=== PATIENT | male | born 1940 | race Caucasian/White ===

== ENCOUNTER 2021-09-18 00:37 | Emergency (ER) | payer MEDICARE ==
[~2021-09-18] VITALS: Ht 188 cm; Wt 96.7 kg
[2021-09-18] MEDS ORDERED: TRANEXAMIC ACID 1,000 MG/10 ML VIAL IVP ONE (01:15)
[2021-09-18] MEDS ORDERED: METO25 PO (01:31)
[2021-09-18] MEDS ORDERED: HYDR-4723 PO (01:31)
[2021-09-18] MEDS ORDERED: DONE-51 PO (01:31)
[2021-09-18] MEDS ORDERED: MELA5TAB40 PO (01:31)
[2021-09-18] MEDS ORDERED: TICA90TA PO (01:31)
[2021-09-18] MEDS ORDERED: CLON-598 PO (01:31)
[2021-09-18] MEDS ORDERED: ASPI-1450 PO (01:31)
[2021-09-18] MEDS ORDERED: CYAN500T56 PO (01:31)
[2021-09-18] MEDS ORDERED: RANO500T3 PO (01:31)
[2021-09-18] MEDS ORDERED: AMIO200T68 PO (01:31)
[2021-09-18] MEDS ORDERED: GABA-1181 PO (01:31)
[2021-09-18] MEDS ORDERED: TRAZ-252 PO (01:31)
[2021-09-18] MEDS ORDERED: LACT1.5C PO (01:31)
[2021-09-18] MEDS ORDERED: LOPE-202 PO (01:31)
[2021-09-18] MEDS ORDERED: TAMS-13 PO (01:31)
[2021-09-18] MEDS ORDERED: ATOR40TA28 PO (01:31)
[2021-09-18] MEDS ORDERED: FURO20 PO (01:31)
[2021-09-18] MEDS ORDERED: NITR0.4T52 SL (01:31)
[2021-09-18] MEDS ORDERED: SILO8CAP6 PO (01:31)
[2021-09-18] MEDS ORDERED: DOCU250C16 PO (01:31)
[2021-09-18] MEDS ORDERED: VANC250C6 PO (01:31)
[2021-09-18 01:50] LABS: BASOPHILS % (AUTO) 0.6 % (0.0-2.0); EOSINOPHILS % (AUTO) 3.3 % (1.0-6.0); HEMATOCRIT 34.6 % (41-53); HEMOGLOBIN 11.5 g/dL (13.5-17.5); LYMPHOCYTES # (AUTO) 1.2 K/uL (1.0-4.8); LYMPHOCYTES % (AUTO) 13.5 % (22.0-44.0); MEAN CORPUSCULAR HEMOGLOBIN 31.7 pg (26.0-34.0); MEAN CORPUSCULAR HGB CONC 33.3 G/dL (31.0-37.0); MEAN CORPUSCULAR VOLUME 95 fL (80-100); MONOCYTES # (AUTO) 0.7 K/uL (0.1-1.0); MONOCYTES % (AUTO) 7.8 % (2.0-9.0); NEUTROPHILS # (AUTO) 6.7 K/uL (1.8-7.7); NEUTROPHILS % (AUTO) 74.8 % (40.0-70.0); PLATELET COUNT (AUTO) 137 K/uL (150-450); RED BLOOD CELL COUNT(AUTO) 3.64 MIL/uL (4.50-5.90); RED CELL DISTRIBUTION WIDTH 15.2 % (11.5-14.5)
[2021-09-18 01:51] LABS: ANION GAP 4 mmol/L (8-16); CALCIUM, TOTAL 7.8 mg/dL (8.8-10.5); CARBON DIOXIDE 35 mmol/L (22-29); CHLORIDE 107 mmol/L (98-107); CREATININE 0.81 mg/dL (0.60-1.30); GLUCOSE,RANDOM 106 mg/dL (70-110); POTASSIUM 3.4 mmol/L (3.5-5.1); SODIUM SERUM 146 mmol/L (136-145); UREA NITROGEN, BLOOD 18 mg/dL (7-18)
[2021-09-18 01:52] LABS: GLOMERULAR FILTR. RATE CALC > 60 mL/min (>60)
[2021-09-18 01:56] LABS: ALANINE AMINOTRANSFERASE 22 U/L (12-78); ALKALINE PHOSPHATASE 76 U/L (46-116); ASPARTATE AMINOTRANSFERASE 30 U/L (15-37); BILIRUBIN,TOTAL 0.6 mg/dL (0.1-1.0); TOTAL PROTEIN, SERUM 5.2 g/dL (6.4-8.2)
[2021-09-18 02:53] LABS: INR 1.3 (0.9-1.1)
[2021-09-18 03:45] VITALS: BP 142/77
== END 2021-09-18 04:01 ==
LOC: EMS 00:38
DX: S01.511A Laceration without foreign body of lip, initial encounter (principal); I48.91 Unspecified atrial fibrillation; E78.00 Pure hypercholesterolemia, unspecified; F41.9 Anxiety disorder, unspecified; Z79.899 Other long term (current) drug therapy; X58.XXXA Exposure to other specified factors, initial encounter; Y93.89 Activity, other specified; Y92.89 Other specified places as the place of occurrence of the external cause; Y99.8 Other external cause status
CPT/HCPCS: 36415; 80053; 85025; 85610; 85730; 99283; J3490